=== PATIENT | female | born 1955 | race Caucasian/White ===

== ENCOUNTER 2019-01-08 03:30 | Emergency (ER) | payer OTHER, MEDICARE ==
[2019-01-08 03:36] VITALS: BP 129/78; PULSE 65; TEMP 97.9; BMI 21.9
--- NOTE | 2019-01-08 03:45 | PDOC ---
History of Present Illness - General Chief Complaint: Pain, Acute Stated Complaint: thumb pain Time Seen by Provider: 01/08/19 03:45 History Source: Patient Exam Limitations: No Limitations - History of Present Illness Initial Comments: 01/08/19 05:25 L thumb pain, increasing, s/p slammed it in door 1 week ago Occurred: reports: last week Upper Extremity Pain Location: left: thumb Method of Injury: reports: direct blow Modifying Factors: improves with: None Past History - Past Medical History Allergies/Adverse Reactions: Allergies Allergy/AdvReac Type Severity Reaction Status Date / Time No Known Allergies Allergy Verified 01/08/19 03:32 COPD: No CHF: No Comment:: 01/08/19 05:26 denies - Suicide/Smoking/Psychosocial Hx Smoking History: Never smoked Hx Alcohol Use: No Drug/Substance Use Hx: No Review of Systems - Review of Systems Able to Perform ROS?: Yes All Other Systems: Reviewed and Negative *Physical Exam - Vital Signs Last Vital Signs Temp Pulse Resp BP Pulse Ox 97.9 F 65 18 129/78 99 01/08/19 03:31 01/08/19 03:31 01/08/19 03:31 01/08/19 03:31 01/08/19 03:31 - Physical Exam General Appearance: Yes: Nourished, Appropriately Dressed HEENT: positive: Normal Voice Neck: negative: Lymphadenopathy (R), Lymphadenopathy (L) Lymphatic: negative: Adenopathy Musculoskeletal: positive: Normal Inspection Extremity: positive: Other (erythema and tenderness overlying distal L first digit) Medical Decision Making - Medical Decision Making 01/08/19 05:27 plain film -, as read by me, referred to radiology for definitive review proximal nail trephinated with return of pus skin around nail bed lifted with return of pus a/p paronychia drained continue antibiotics prescribed at earlier today *DC/Admit/Observation/Transfer Diagnosis at time of Disposition: Paronychia - Discharge Dispostion Disposition: HOME Condition at time of disposition: Stable - Referrals - Patient Instructions Printed Discharge Instructions: DI for Paronychia - Post Discharge Activity
[2019-01-08] MEDS ORDERED: LIDOCAINE HCL 2% (20ML MULTI-DOSE VIAL) NR ONE (04:44)
== END 2019-01-08 05:36 | disposition home or self-care (01) ==
LOC: FER 03:30
DX: L03.012 Cellulitis of left finger (principal); W23.0XXA Caught, crushed, jammed, or pinched between moving objects, initial encounter; Y93.89 Activity, other specified; Y92.89 Other specified places as the place of occurrence of the external cause
CPT/HCPCS: 73140-TC-LT-FY; 99282-25